=== PATIENT | male | born 1950 | race Caucasian/White ===

== ENCOUNTER 2018-08-29 09:49 | Emergency (ER) | payer MEDICARE ==
[2018-08-29] MEDS ORDERED: Sodium Chloride 0.9% 10 ML Syringe FLUSH PRN (09:53)
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
--- NOTE | 2018-08-29 10:25 | CR ---
Clinical history: 68-year-old male chest pain. Interpretation (AP portable film with external vehicle monitor technician leads and oxygen cannula) No comparison films available. Interpretation: *Pleural parenchymal scar or infarct versus early infiltrate peripherally left lung base. Normal cardiac silhouette without cephalization of flow, signs of alveolar edema or dependent pleural effusion. No lung mass, hilar lymphadenopathy or other focal lobar consolidation. No pneumothorax.
[2018-08-29 10:46] LABS: CHLORIDE,CL 97 mmol/L (101-111); SODIUM,NA 134 mmol/L (135-145)
[2018-08-29] MEDS ORDERED: oxyCODONE 5 MG Tab PO ONE (12:46)
== END 2018-08-29 15:15 | disposition home or self-care (01) ==
LOC: DL.ED 09:49
DX: R07.9 Chest pain, unspecified (principal); Z88.1 Allergy status to other antibiotic agents; Z88.8 Allergy status to other drugs, medicaments and biological substances; Z79.899 Other long term (current) drug therapy
CPT/HCPCS: 36415; 71045; 80053; 83605; 83735; 83880; 84484; 85025; 85610; 87040; 93005; 99285; A9270